=== PATIENT | male | born 1940 | race Caucasian/White ===

== ENCOUNTER → 2020-10-07 15:52 | Outpatient (CLI) | payer OTHER, SELFPAY ==
--- NOTE | 2020-10-07 | DI.ECHO.S_ITS ---
[facility]---------+ [facility] +---------+ : : [address] : : : [place] : : : : [id number] : : : : Phone: [phone]+ Echocardiogram Report + + :Name: JET CLARK Study Date: 10/07/2020 Height: 68 in : :[facility] ReadingLocation: Weight: 185 lb : : Gender: Male BSA: 2.0 m2 : :: 1940 Age: 80 yrs BP: 160/100 mmHg: :Reason For Study: DIZZINESS AND GIDDINESS : :Ordering Physician: LEXY MINAYA : :M Performed By: Sara Donato : :Referring: LEXY MINAYA M : + + Interpretation Summary Normal left ventricle size with hyperdynamic function and ejection fraction 65-70%. Mild aortic valve sclerosis. Mildly enlarged ascending aorta. Procedure: A two-dimensional transthoracic echocardiogram with color flow and Doppler was performed. The study quality was technically adequate. There is no prior echocardiogram noted for this patient. The patient was in sinus rhythm with heart rates between 74-89 bpm during the exam. Left Ventricle: The left ventricle is normal in size and wall thickness. The left ventricle is hyperdynamic. The ejection fraction is estimated to be 65- 70%. There are no focal wall motion abnormalities. Right Ventricle: The right ventricle is normal in size and function. Atria: The left atrial size is normal. Right atrial size is normal. There is no Doppler evidence for an interatrial shunt. Mitral Valve: The mitral valve is normal in structure and function. There is trace mitral regurgitation. Aortic Valve: The aortic valve is trileaflet. The aortic valve opens well. There is mild aortic valve sclerosis. There is no aortic valve stenosis. There is trace aortic regurgitation. Tricuspid Valve: The tricuspid valve is normal in structure and function. There is trace tricuspid regurgitation. Pulmonary artery pressures cannot be estimated because of the lack of a measurable TR jet velocity but the IVC suggests a CVP of around 3 mmHg. Pulmonic Valve: The pulmonic valve leaflets are thin and pliable; valve motion is normal. There is no pulmonic valvular regurgitation. Great Vessels: The aortic root is normal size. The ascending aorta is mildly enlarged. The IVC is of normal diameter and collapses greater than 50% with a sniff. This suggests a low right atrial pressure of 3 mm Hg. Pericardium/ Pleura There is no pericardial effusion. There is an anterior echo-free space consistent with a fat pad. There is no pleural effusion. MMode/2D Measurements & Calculations LVIDd: 3.5 cm LVOT diam: 2.2 cm LVIDs: 2.4 cm Ao root diam: 3.3 cm FS: 29.4 % asc Aorta Diam: 3.5 cm IVSd: 0.96 cm Ao Arch Diam (Prox Trans): 3.2 cm LVPWd: 0.96 cm LV benson. diameter/BSA (cm/m^2): 1.7 LV sys. diameter/BSA (cm/m^2): 1.2 LA A2 area: 22.1 cm2 RA long axis: 5.6 cm LA A4 area: 13.7 cm2 RA area: 16.6 cm2 LA length (vol): 4.7 cm RA vol: 42.0 ml LA vol: 54.4 ml RA : 21.3 ml/m2 LA vol index: 27.5 ml/m2 IVC diam: 1.1 cm RVD1 (basal): 2.8 cm TAPSE: 2.0 cm Doppler Measurements & Calculations Ao V2 max: 156.6 cm/sec LVOT Max Coleman: 122.4 cm/sec Ao V2 mean: 107.5 cm/sec LV V1 max P.0 mmHg Ao max P.8 mmHg LV V1 VTI: 24.3 cm Ao mean P.3 mmHg MARK(I,D): 3.0 cm2 Ao V2 VTI: 30.7 cm MARK(V,D): 3.0 cm2 sev ratio: 0.79 MARK indexed to BSA (cm^2/m^2): 1.5 MV E max coleman: 45.4 cm/sec PA V2 max: 91.0 cm/sec MV A max coleman: 85.1 cm/sec PA V2 mean: 58.5 cm/sec MV E/A: 0.53 PA mean P.6 mmHg Med Peak E' Coleman: 7.1 cm/sec PA pr(Accel): 29.3 mmHg E/E' med: 6.4 Lat Peak E' Coleman: 11.4 cm/sec E/E' lat: 4.0 E/e' average: 5.2 MV dec time: 0.18 sec SV(LVOT): 91.7 ml Electronically signed by: Mary Kate Hutchison on Reading Physician:10/07/2020 05:23 PM
== END ==
PROVIDERS: Family Provider Family Medicine; PCP Family Medicine; Referring Provider Nurse Practitioner Family; Visit Provider Nurse Practitioner Family
DX: I35.8 Other nonrheumatic aortic valve disorders (principal); I77.89 Other specified disorders of arteries and arterioles; R42 Dizziness and giddiness; I44.0 Atrioventricular block, first degree
CPT/HCPCS: 93306

== ENCOUNTER 2020-12-20 16:06 | Emergency (ER) | payer OTHER, SELFPAY ==
[2020-12-20] VITALS (15 sets, daily range): BP systolic 127–201; BP diastolic 72–81; PULSE 51–70; RESP 9–19; TEMP 36.6; O2SAT 97–99; BMI 29.7
[2020-12-20 16:54] LABS: Add Manual Diff / Slide Review NO; Basophils Absolute Auto 100 /uL (0-100); Eosinophils Absolute Auto 300 /uL (0-450); Eosinophils Percent Auto 4.6 % (2-4); Hematocrit 40.3 % (41-53); Hemoglobin 13.7 g/dL (13.5-17.5); Lymphocytes Absolute Auto 2400 /uL (1100-4500); Lymphocytes Percent Auto 34.1 % (25-40); Mean Corpuscular Volume 97.2 fL (80-100); Monocytes Absolute Auto 500 /uL (0-900); Monocytes Percent Auto 6.6 % (3-14); Neutrophils Absolute Auto 3800 /uL (1500-7000); Neutrophils Percent Auto 53.7 % (50-75); Platelet Count 257 X10^3/uL (150-400); Red Blood Cell Count 4.15 X10^6/uL (4.5-5.9); White Blood Cell Count 7.1 X10^3/uL (4.5-11.0)
--- NOTE | 2020-12-20 17:02 | ED.DIZZY ---
HPI - Dizziness General Chief Complaint: Dizziness Stated Complaint: JUST ABOUT PASSING OUT HEADACHE Time Seen by Provider: 12/20/20 16:25 Source: patient Mode of arrival: Ambulatory Limitations: no limitations History of Present Illness HPI Narrative: Patient is a 80-year-old male who presents with dizziness and lightheadedness. He says that he has had it off and on for a number of weeks is. He actually has been seen by a neurologist who ordered an MRI at some point. He states that an old stroke was seen. He gets dizzy and lightheaded both with exertion and at rest but seems to be more exacerbated with very minimal exertion and exercise. He has no chest pain or palpitations. His primary care provider diet started him on Topamax to help with some mild tremors. He feels like this has made his symptoms worse. He comes with a chart and wrap of his blood pressures which do seem to be quite variable however the lowest does seem to have a systolic greater than 100. He also was started on alfuzosin for workup of prostate cancer. He has not passed out hit his head or lost consciousness. He denies nausea vomiting, chest pain or palpitations. No numbness tingling or weakness. MD complaint: dizziness and lightheadedness Related Data Home Medications Medication Instructions Recorded Confirmed CHOLECALCIFEROL (VITAMIN D3) 1 tab PO #0 02/09/12 11/12/20 (#VITAMIN D 90 MG-2000 IU) Fish Oil (#SUPER EPA 2000) 2,000 mg PO QDAY #0 02/09/12 11/12/20 aspirin 81 mg PO QDAY #0 02/09/12 11/12/20 levothyroxine 150 mcg PO QDAY #0 02/09/12 11/12/20 lisinopril 10 mg tablet 10 mg PO DAILY 11/11/20 11/11/20 red yeast rice 600 mg tablet 1,200 mg PO DAILY 11/11/20 11/11/20 Previous Rx's Medication Instructions Recorded alfuzosin 10 mg tablet,extended 10 mg PO DAILY #90 tab 11/12/20 release 24 hr Allergies Allergy/AdvReac Type Severity Reaction Status Date / Time ezetimibe [From Zetia] Allergy Verified 12/20/20 16:11 Plzhxnk-Ndo-Rtu Reductase Allergy Verified 12/20/20 16:11 Inhibitor Review of Systems Review of Systems ROS Unobtainable: All systems reviewed & are unremarkable except as noted in HPI and below Constitutional Constitutional: Denies chills, Denies fever(s), Denies lethargy and Denies weakness ENT Ears, Nose, Mouth, and Throat: Denies change in voice, Denies vertigo, Denies dizziness, Denies neck pain and Denies sore throat Cardiovascular Cardiovascular: Denies chest pain, Denies irregular heart rhythm, Reports lightheadedness, Denies palpitations, Denies dyspnea, Denies dyspnea on exertion and Denies orthopnea Respiratory Respiratory: Denies cough, Denies dyspnea, Denies dyspnea on exertion and Denies wheezing Gastrointestinal Gastrointestinal: Denies abdominal pain, Denies change in bowel habits, Denies diarrhea, Denies nausea and Denies vomiting Musculoskeletal Musculoskeletal: Denies back pain and Denies neck pain Integumentary/Breasts Skin/Breast: Denies pruritus, Denies erythema, Denies rash and Denies wounds Neurologic Neurologic: Denies abnormal movements, Denies vertigo, Denies dizziness and Denies weakness Endocrine Endocrine: Denies palpitations Allergic/Immunologic Allergic/Immunologic: Denies wheezing Patient History Medical History BPH w urinary obs/LUTS CVA (cerebral vascular accident) Depressed Elevated PSA HTN (hypertension) Hypercholesteremia Thyroid disease Surgical History H/O colectomy H/O vasectomy History of colon surgery Family History Son Hypercholesteremia Hypertension Migraine Social History marital status: Smoking Status: Former smoker alcohol intake: current caffeine: Yes Smoking Status: Former smoker Substance Use Type: does not use Exam Initial Vital Signs Initial Vital Signs: Vital Signs Temperature 97.9 F 12/20/20 16:11 Pulse Rate 70 12/20/20 16:11 Respiratory Rate 18 12/20/20 16:11 Blood Pressure 127/81 12/20/20 16:11 Pulse Oximetry 99 12/20/20 16:11 GENERAL: Alert pleasant 80-year-old male and in no acute distress. HEENT: Head atraumatic,EOMI, pupils reactive, face symmetric, moist mucous membranes CARDIOVASCULAR: Regular rate and rhythm without murmurs, rubs or gallops. RESPIRATORY: Breath sounds equal bilaterally, no wheezes rales or rhonchi. ABDOMEN: Soft, nontender. Normoactive bowel sounds all 4 quadrants. No guarding or rebound. EXTREMITIES: Normal range of motion, no clubbing or edema. Neurovascularly intact NEUROLOGICAL: Alert and oriented x4.Normal gait and speech. Cranial nerves II through XII grossly intact. Good qpvkja-mj-eywv, good ckco-sf-yafj, strength equal bilaterally, no dysarthria or aphasia, sensation in tact to soft touch bilaterally, no visual changes, no facial droop SKIN: Warm, dry, no laceration, no petechiae, no rashes or lesions. Scores NIH Stroke Scale Level of Conciousness: Alert, keenly responsive Ask month/age: Answers both questions correctly. Open/close eyes, close hand: Performs both tasks correctly Best gaze horizontal: Normal Visual leo: No visual loss Facial palsy: Normal symetrical movement Left arm drift: No drift for full 10 sec Right arm drift: No drift for full 10 sec Left leg drift: No drift for full 5 sec Right leg drift: No drift for full 5 sec Limb ataxia: Absent Sensory on face/arms/legs: Normal, no sensory loss Best language: No aphasia, normal Dysarthria: Normal Extinction or inattention: No abnormality Total NIH Stroke scale score: 0 Course Orders Ordered: ED Orders 12/20/20 16:30 EKG-12 Lead Stat 12/20/20 16:40 CKMB Panel (CK + CKMB) Stat Complete Blood Count AUTO DIFF Stat Comprehensive Metabolic Panel Stat Troponin I Stat 12/20/20 17:03 CT head/brain wo con Stat Vital Signs Vital signs: Vital Signs - 8 hr 12/20/20 16:11 12/20/20 16:40 12/20/20 16:47 Temperature 97.9 F Pulse Rate 70 64 63 Pulse Rate [Orthostatic Lying] Pulse Rate [Orthostatic Sitting] Pulse Rate [Orthostatic Standing] Respiratory Rate 18 13 Blood Pressure 127/81 127/72 Blood Pressure [Orthostatic Lying] Blood Pressure [Orthostatic Sitting] Blood Pressure [Orthostatic Standing] Pulse Oximetry 99 99 99 12/20/20 17:00 12/20/20 17:30 12/20/20 17:45 Temperature Pulse Rate 68 56 L 57 L Pulse Rate [Orthostatic Lying] Pulse Rate [Orthostatic Sitting] Pulse Rate [Orthostatic Standing] Respiratory Rate 13 11 L 15 Blood Pressure 168/81 H 128/79 173/77 H Blood Pressure [Orthostatic Lying] Blood Pressure [Orthostatic Sitting] Blood Pressure [Orthostatic Standing] Pulse Oximetry 97 99 97 12/20/20 17:55 Temperature Pulse Rate Pulse Rate [Orthostatic Lying] 51 L Pulse Rate [Orthostatic Sitting] 63 Pulse Rate [Orthostatic Standing] 61 Respiratory Rate Blood Pressure Blood Pressure [Orthostatic Lying] 165/77 H Blood Pressure [Orthostatic Sitting] 160/75 H Blood Pressure [Orthostatic Standing] 143/74 H Pulse Oximetry MDM - Dizziness Lab Data Attestation: I reviewed the patient's lab results. Result diagrams: 12/20/20 16:40 12/20/20 16:40 Labs: Lab Results 12/20/20 12/20/20 12/20/20 Range/Units 16:40 16:40 16:40 WBC 7.1 (4.5-11.0) X10^3/uL RBC 4.15 L (4.5-5.9) X10^6/uL Hgb 13.7 (13.5-17.5) g/dL Hct 40.3 L (41-53) % MCV 97.2 (80-100) fL MCH 33.0 (26-34) PG MCHC 34.0 (30-36) % RDW 13.0 (11.6-14.8) % Plt Count 257 (150-400) X10^3/uL Neut % (Auto) 53.7 (50-75) % Lymph % (Auto) 34.1 (25-40) % [place] % (Auto) 6.6 (3-14) % Eos % (Auto) 4.6 H (2-4) % Baso % (Auto) 1.0 (0-2) % Neut # (Auto) 3800 (7665-0980) /uL Lymph # (Auto) 2400 (4250-6005) /uL [place] # (Auto) 500 (0-900) /uL Eos # (Auto) 300 (0-450) /uL Baso # (Auto) 100 (0-100) /uL Sodium 136 L (137-145) mmol/L Potassium 4.4 (3.4-5.1) mmol/L Chloride 105 (98-107) mmol/L Carbon Dioxide 27 (22-32) mmol/L BUN 19 (9-20) mg/dL Creatinine 1.07 (0.66-1.25) mg/dL Estimated GFR > 60.0 (>60) mL/min BUN/Creatinine Ratio 17.8 (6-22) Glucose 94 (80-110) mg/dL Calcium 9.2 (8.4-10.2) mg/dL Total Bilirubin 0.4 (0.2-1.3) mg/dL AST 26 (17-59) IU/L ALT 14 (<50) IU/L Alkaline Phosphatase 49 (38-126) U/L Total Creatine Kinase 84 (55-170) U/L CK-MB (CK-2) TNP CK-MB (CK-2) Rel Index TNP Troponin I < 0.012 (0.01-0.034) ng/mL Total Protein 6.8 (6.3-8.2) g/dL Albumin 3.8 (3.5-5.0) g/dL Globulin 3.0 (1.7-4.1) g/dL Albumin/Globulin Ratio 1.3 (1.0-2.8) Imaging Data CT scan - head: Radiologist's Impression: PROCEDURE: CT HEAD/BRAIN WO CON INDICATIONS: difficulty walking weeks TECHNIQUE: Noncontrast 4.5 mm thick angled axial sections acquired from the foramen magnum to the vertex, with coronal and sagittal reformats. For radiation dose reduction, the following was used: automated exposure control, adjustment of mA and/or kV according to patient size. COMPARISON: None. FINDINGS: Image quality: Excellent. CSF spaces: Basal cisterns are patent. No extra-axial fluid collections. The ventricles are symmetric in size and shape. Brain: No intracranial bleeds or masses. There is cerebral volume loss for age, with resultant ventricular and sulcal prominence. There are periventricular and deep white matter chronic small vessel ischemic changes. There is intracranial internal carotid artery atherosclerosis. Skull and face: Calvarium and visualized facial bones appear intact, without suspicious lesions. Sinuses: Visualized sinuses and mastoids are clear. IMPRESSION: No acute process. Dictated by: Osmani Stevens M.D. on 12/20/2020 at 17:45 ECG Data Attestation: I personally reviewed and interpreted this ECG as follows: Prior ECG tracings: not available for review Interpretation: Normal sinus rhythm rate 58 p.r. interval 252 QRS [address] changes MDM Narrative Medical decision making narrative: Patient has no focal deficits. I believe his symptoms are probably related to the medications. He has been seen by a neurologist for this problem are ready get an outpatient MRI already, I do not have access to that report or record. Symptoms may have gotten worse this week with addition to Topamax. At this time I recommend he stop that particular medication. He has no focal deficits. Blood work in workup is overall reassuring. His blood pressure actually has not dropped significantly low according to his log. He is ambulatory in the ED without any difficulty orthostatics are negative. At this time recommend outpatient follow-up. Discharge Plan Departure Patient Disposition: Home Clinical Impression: Medication reaction Instructions: Orthostatic Hypotension Activity Restrictions/Additional Instructions: *You have been diagnosed with medication reaction *What to do: At this time I believe that some of your symptoms may be related to some of your medications. The prostate medicine and the recent medication you were started on can alter your blood pressure. I do recommend that you have a full cardiology evaluation including a Holter monitor-please discuss this with her primary care provider *Continue to take medications as directed -stop taking topirmate (the medication you started this week) *Follow up with your primary care provider in 2-3 days *Return to ER if you should have passing out, dizziness, lightheadedness, chest pain palpitations or any new, worsening or concerning symptoms If you should have a syncopal episode worry pass out and ended up on the floor without remembering how he got there please call 911 and return to the emergency department Prescriptions: No Action aspirin 81 MG tablet,chewable 81 mg PO QDAY Qty: 0 RF: 0 Fish Oil (#SUPER EPA 2000) 2,000 mg PO QDAY Qty: 0 RF: 0 levothyroxine 150 MCG tablet 150 mcg PO QDAY Qty: 0 RF: 0 CHOLECALCIFEROL (VITAMIN D3) (#VITAMIN D 90 MG-2000 IU) 1 tab PO Qty: 0 RF: 0 red yeast rice 600 mg tablet 1,200 mg PO DAILY RF: 0 lisinopril 10 mg tablet 10 mg PO DAILY RF: 0 alfuzosin 10 mg tablet extended release 24 hr 10 mg PO DAILY Qty: 90 RF: 3 Referrals: Dayanna Bernabe MD [Primary Care Provider] - Young Gonzalez MD [Physician] -
[2020-12-20 17:05] LABS: Alanine Aminotransferase 14 IU/L (<50); Albumin 3.8 g/dL (3.5-5.0); Albumin Globulin Ratio 1.3 (1.0-2.8); Alkaline Phosphatase 49 U/L (38-126); Aspartate Aminotransferase 26 IU/L (17-59); BUN Creatinine Ratio 17.8 (6-22); Bilirubin Total 0.4 mg/dL (0.2-1.3); Blood Urea Nitrogen 19 mg/dL (9-20); Calcium 9.2 mg/dL (8.4-10.2); Carbon Dioxide 27 mmol/L (22-32); Chloride 105 mmol/L (98-107); Creatine Kinase 84 U/L (55-170); Estimated Glomerular Filt Rate > 60.0 mL/min (>60); Glucose 94 mg/dL (80-110); HEMOLYSIS 39 (0-50); Potassium 4.4 mmol/L (3.4-5.1); Sodium 136 mmol/L (137-145); Total Protein 6.8 g/dL (6.3-8.2)
[2020-12-20 17:17] LABS: Troponin I < 0.012 ng/mL (0.01-0.034)
== END 2020-12-20 19:11 | disposition home or self-care (01) ==
PROVIDERS: Emergency Provider Emergency Medicine; Family Provider Family Medicine; PCP Family Medicine
DX: R42 Dizziness and giddiness (principal); T50.905A Adverse effect of unspecified drugs, medicaments and biological substances, initial encounter; R26.2 Difficulty in walking, not elsewhere classified
CPT/HCPCS: 70450; 80053; 82550; 84484; 85025; 93005; 99284

== ENCOUNTER → 2021-01-02 12:52 | Outpatient (CLI) | payer OTHER, SELFPAY ==
--- NOTE | 2021-01-31 08:56 | PM.CARDMON.1 ---
Work Adjustment Instructor Report Referral & Results Date Patient Seen: 01/02/21 Requesting provider: Young Gonzalez Indication: Dizziness Duration of monitoring (days): 7 Diary information: There were no patient events noted Data: Minimum heart rate identified was 42 beats per minute at 22:37 on 01/04/2021 Maximum sinus heart rate was 126 beats per minute at 16:07 on 01/05/2021 Maximum overall heart rate was 182 beats per minute at 12:36 on 01/04/2021 during a 4 beat run of nonsustained ventricular tachycardia There were no pauses or atrial fibrillation identified Less than 1% of identified beats were ventricular or supraventricular ectopic in origin, which would classify them as rare. There was only the 1 run of monomorphic nonsustained ventricular tachycardia as above. 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 Single episode of ventricular tachycardia as above and very rare very brief episodes of SVT
== END ==
PROVIDERS: Family Provider Family Medicine; PCP Family Medicine; Referring Provider Family Medicine; Visit Provider Family Medicine
DX: R42 Dizziness and giddiness (principal)
CPT/HCPCS: 93242; 93244

== ENCOUNTER → 2021-01-16 08:05 | Outpatient (CLI) | payer OTHER, SELFPAY ==
[2021-01-16 10:05] LABS: Prostate Specific Antigen 3.42 ng/mL (0.10-4.00)
== END ==
PROVIDERS: Family Provider Family Medicine; PCP Family Medicine; Referring Provider Specialist; Visit Provider Specialist
DX: R97.20 Elevated prostate specific antigen [PSA] (principal)
CPT/HCPCS: 36415; 84153

== ENCOUNTER → 2021-07-24 10:40 | Outpatient (CLI) | payer OTHER, SELFPAY ==
[2021-07-24 12:49] LABS: TSH w/ Reflex to FT4 7.21 uIU/mL (0.47-4.68)
== END ==
PROVIDERS: Family Provider Family Medicine; PCP Family Medicine; Referring Provider Family Medicine; Visit Provider Family Medicine
DX: E03.9 Hypothyroidism, unspecified (principal)
CPT/HCPCS: 36415; 84439; 84443

== ENCOUNTER → 2023-02-22 10:45 | Outpatient (CLI) | payer OTHER, SELFPAY ==
[2023-02-22 11:41] LABS: Add Manual Diff / Slide Review NO; Basophils Absolute Auto 100 /uL (0-100); Eosinophils Absolute Auto 200 /uL (0-450); Hematocrit 41.2 % (41-53); Lymphocytes Absolute Auto 1400 /uL (1100-4500); Lymphocytes Percent Auto 24.8 % (25-40); Mean Corpuscular HGB Conc 33.9 % (30-36); Mean Corpuscular Volume 97.2 fL (80-100); Monocytes Absolute Auto 400 /uL (0-900); Monocytes Percent Auto 7.9 % (3-14); Neutrophils Absolute Auto 3500 /uL (1500-7000); Neutrophils Percent Auto 63.3 % (50-75); Platelet Count 230 X10^3/uL (150-400); Red Blood Cell Count 4.24 X10^6/uL (4.5-5.9); Red Cell Distribution Width 13.5 % (11.6-14.8); White Blood Cell Count 5.5 X10^3/uL (4.5-11.0)
[2023-02-22 11:54] LABS: Alanine Aminotransferase 15 IU/L (<50); Albumin 3.5 g/dL (3.5-5.0); Albumin Globulin Ratio 1.2 (1.0-2.8); Alkaline Phosphatase 45 U/L (38-126); Aspartate Aminotransferase 23 IU/L (17-59); BUN Creatinine Ratio 16.8 (6-22); Bilirubin Total 0.6 mg/dL (0.2-1.3); Blood Urea Nitrogen 18 mg/dL (9-20); Calcium 8.6 mg/dL (8.4-10.2); Carbon Dioxide 31 mmol/L (22-32); Chloride 105 mmol/L (98-107); Cholesterol 269 mg/dL (140-199); Estimated Glomerular Filt Rate > 60 mL/min (>60); Glucose 90 mg/dL (80-110); HDL Cholesterol 59 mg/dL (40-60); HEMOLYSIS < 15 (0-50); LDL Cholesterol Calculated 195 mg/dL (<100); Magnesium 1.8 mg/dL (1.6-2.3); Potassium 4.5 mmol/L (3.4-5.1); Sodium 136 mmol/L (137-145); Total Protein 6.5 g/dL (6.3-8.2); Triglycerides 77 mg/dL (35-150)
[2023-02-22 12:03] LABS: NT-proBNP (BNP-Adult 18+) 334 pg/mL (<450)
[2023-02-22 12:40] LABS: Thyroid Stimulating Hormone 2.34 uIU/mL (0.47-4.68)
[2023-02-26 08:06] LABS: Metanephrine,Plasma 19.1 pg/mL (0.0-88.0)
== END ==
PROVIDERS: Family Provider Family Medicine; PCP Family Medicine; Referring Provider Internal Medicine Cardiovascular Disease; Visit Provider Internal Medicine Cardiovascular Disease
DX: I10 Essential (primary) hypertension (principal); R06.02 Shortness of breath
CPT/HCPCS: 36415; 80053; 80061; 82088; 83735; 83835; 83880; 84443; 85025

== ENCOUNTER → 2023-03-25 | Outpatient (CLI) | payer OTHER, SELFPAY ==
--- NOTE | 2023-03-25 | DI.ECHO.S_ITS ---
[place] +---------+ [facility] +---------+ : : [address] : [place] : : : : [id number] : : : : Phone: [phone]---------+ Echocardiogram Report + + :Name: JET CLARK Study Date: 03/25/2023 Height: 67 in : :[facility] ReadingLocation: Weight: 200 lb : : Gender: Male BSA: 2.0 m2 : :: 1940 Age: 82 yrs BP: 149/100 mmHg: :Reason For Study: Peripheral Vascular Disease : :Ordering Physician: GRIFFIN, : :MENDEL Performed By: Aggie Mack : :Referring: MENDEL MOYA : + + Interpretation Summary Bloos pressure retaken at the end of exam. (137/95) The left ventricle is normal in size. The ejection fraction is estimated to be 60-65%. No significant change in LV function. The right ventricle is mildly dilated. The right ventricular systolic function is normal. No significant valvular pathology seen. The IVC is of normal diameter and collapses greater than 50% with a sniff. This suggests a low right atrial pressure of 3 mm Hg. Procedure: A two-dimensional transthoracic echocardiogram with color flow and Doppler was performed. The study quality was technically adequate. Comparison is made with the echocardiogram of 10/07/2020. The patient was in normal sinus rhythm during the exam. The patient was in first degree heart block during the exam. Left Ventricle: The left ventricle is normal in size. There is no thrombus. The ejection fraction is estimated to be 60-65%. Septal motion is consistent with conduction abnormality. Diastolic parameters suggest a relaxation abnormality of the left ventricle, consistent with probable normal filling pressures. Right Ventricle: The right ventricle is mildly dilated. The right ventricular systolic function is normal. Atria: The left atrial size is normal. There has been no significant change since the previous study. Right atrial size is normal. There is no Doppler evidence for an interatrial shunt. Mitral Valve: The mitral valve is normal. There is no mitral valve stenosis. There is trace mitral regurgitation. Aortic Valve: The aortic valve is trileaflet. The aortic valve opens well. There is mild aortic valve sclerosis. There is no aortic valve stenosis. There is mild aortic regurgitation. Tricuspid Valve: The tricuspid valve is normal. There is no tricuspid stenosis. There is trace tricuspid regurgitation. The right ventricular systolic pressure is estimated to be at least 22 mmHg based on an estimated right atrial pressure of 3 mm Hg. Pulmonic Valve: The pulmonic valve leaflets are thin and pliable; valve motion is normal. There is no pulmonic valvular stenosis. There is trace pulmonic regurgitation. Great Vessels: The aortic root is normal size. The ascending aorta is normal in size. The pulmonary artery is normal size. The IVC is of normal diameter and collapses greater than 50% with a sniff. This suggests a low right atrial pressure of 3 mm Hg. Pericardium/ Pleura There is no pericardial effusion. There is an anterior echo-free space consistent with a fat pad. There is no pleural effusion. MMode/2D Measurements & Calculations LVIDd: 3.7 cm LVOT diam: 1.9 cm LVIDs: 2.8 cm Ao root diam: 3.2 cm FS: 24.3 % asc Aorta Diam: 3.0 cm IVSd: 0.90 cm LVPWd: 1.0 cm LV benson. diameter/BSA (cm/m^2): 1.8 LV sys. diameter/BSA (cm/m^2): 1.4 LA A2 area: 23.4 cm2 RA long axis: 5.9 cm LA A4 area: 15.8 cm2 RA area: 18.7 cm2 LA length (vol): 6.0 cm RA vol: 50.4 ml LA vol: 52.3 ml RA : 24.9 ml/m2 LA vol index: 25.9 ml/m2 RVD1 (basal): 4.2 cm LVLs ap4: 6.5 cm LVLd ap2: 8.2 cm TAPSE_phl: 2.5 cm LVLs ap2: 6.4 cm Doppler Measurements & Calculations Ao V2 max: 158.0 cm/sec LVOT Max Coleman: 123.0 cm/sec Ao V2 mean: 106.7 cm/sec LV V1 max P.1 mmHg Ao max P.0 mmHg LV V1 VTI: 25.4 cm Ao mean P.3 mmHg MARK(I,D): 2.0 cm2 Ao V2 VTI: 35.6 cm MARK(V,D): 2.2 cm2 sev ratio: 0.71 MARK indexed to BSA (cm^2/m^2): 1.0 MV E max coleman: 58.5 cm/sec TR max coleman: 215.3 cm/sec MV A max coleman: 78.5 cm/sec TR max P.6 mmHg MV E/A: 0.74 PA V2 max: 82.5 cm/sec Med Peak E' Coleman: 8.1 cm/sec PA V2 mean: 56.0 cm/sec E/E' med: 7.2 PA mean P.7 mmHg Lat Peak E' Coleman: 9.6 cm/sec PA pr(Accel): 47.9 mmHg E/E' lat: 6.1 E/e' average: 6.7 MV dec time: 0.24 sec SV(LVOT): 71.9 ml AV VR_phl: 0.78 MARK(VTI)/BSA_phl: 1.0 Reading Physician:04:40 PM
--- NOTE | 2023-03-25 08:36 | DI.US.S_ITS ---
PROCEDURE: US ARTERIAL DUPLEX LE BI INDICATIONS: PERIPHERAL ARTERIAL DISEASE TECHNIQUE: Color and pulse Doppler interrogation was performed of both lower extremity arterial systems, with image documentation. COMPARISON: None. FINDINGS: Right lower extremity: Common femoral artery: 96 cm/sec, with triphasic flow. Deep femoral artery: 65 cm/sec, with triphasic flow. Proximal superficial femoral artery: 65 cm/sec, with triphasic flow. Mid superficial femoral artery: 86 cm/sec, with triphasic flow. Distal superficial femoral artery: 63 cm/sec, with triphasic flow. Popliteal artery: 56 cm/sec, with triphasic flow. Posterior tibial artery: 64 cm/sec, with triphasic flow. Anterior tibial artery/dorsalis pedis: 81 cm/sec, with triphasic flow. Jj-scale imaging description: Minimal plaque. No stenosis. At least 2 vessel runoff. Left lower extremity: Common femoral artery: 93 cm/sec, with triphasic flow. Deep femoral artery: 58 cm/sec, with triphasic flow. Proximal superficial femoral artery: 84 cm/sec, with triphasic flow. Mid superficial femoral artery: 108 cm/sec, with triphasic flow. Distal superficial femoral artery: 56 cm/sec, with triphasic flow. Popliteal artery: 64 cm/sec, with triphasic flow. Posterior tibial artery: 72 cm/sec, with triphasic flow. Anterior tibial artery/dorsalis pedis: 61 cm/sec, with triphasic flow. Jj-scale imaging description: Minimal plaque. No stenosis. At least 2 vessel runoff. IMPRESSION: Negative peripheral arterial ultrasound for patient age. Dictated by: Simone Velez M.D. on 03/25/2023 at 12:02 Approved by: Simone Velez M.D. on 03/25/2023 at 12:04
--- NOTE | 2023-03-26 00:46 | DI.NM.S_ITS ---
DATE OF SERVICE: 03/25/2023 PROCEDURE: Exercise treadmill stress and rest myocardial perfusion imaging study with gating to assess ejection fraction and regional wall motion. ORDERING PROVIDER: Mónica Corcoran MD INDICATIONS: The patient is an 82-year-old male with a history of alcohol use, lightheadedness, and dyspnea. CARDIAC STRESS: The patient was able to exercise for 3 minutes 1 second on a standard Barrett protocol suggesting moderate-severely reduced exercise capacity with an KELLY of +31%, achieving 4.0 METs. He had a normal hemodynamic response to exercise, achieving a maximum heart rate of 126 BPM (91% of his predicted maximum). He had no chest discomfort or other anginal symptoms. His resting ECG is normal with normal ST segments. There are no significant ST-segment shifts or arrhythmias with stress. At 1 minute 40 seconds of exercise at a heart rate of 110 BPM, 24.5 mCi of technetium-99m Myoview was injected and he was imaged 15 minutes later using a gated SPECT acquisition protocol. Earlier in the day while at rest, he had been injected with 10.9 mCi of technetium-99m Myoview and was imaged 20 minutes later, again using a quantitated gated SPECT protocol. FINDINGS: 1. Raw data: There is fair myocardial tracer uptake with slight motion noted. The lung/heart ratio is normal at 0.33 with a normal TID ratio of 0.72. 2. Quantitated gated SPECT: Post-stress ejection fraction is estimated at 80% without any focal wall motion abnormality and specifically the inferior wall appears to have fairly normal contractility. The resting ejection fraction is 68%, although visually it appears similar to that of the post-stress image. Resting end-diastolic volume is normal at 97 mL. 3. Myocardial perfusion imaging: Post-stress supine images shows a mild perfusion defect in the proximal and mid inferior wall, becoming somewhat more prominent distally. This defect resolves proximally on the prone images, although a mild defect persists distally. There are no other perfusion defects. The resting images show an identical perfusion pattern to that of the post-stress supine images, again with an inferior defect that is more prominent distally but without any areas of improvement. IMPRESSION: 1. Probable abnormal myocardial perfusion study. 2. Fixed inferior defect that is more profound distally. This defect resolves proximally, suggesting this reflects diaphragmatic attenuation, although persists to a slight degree distally on the prone images suggesting this could represent a small previous infarct yet the absence of any wall motion abnormality in this area would mitigate against this but still, a small nontransmural distal inferior infarction cannot be entirely excluded. There is no evidence for any myocardial ischemia. 3. Normal left ventricular systolic function without any focal wall motion abnormality. 4. Moderate-severely reduced exercise capacity without angina or ECG changes of ischemia. There were no arrhythmias. Jose G Gutierrez - /christopher/ doc#: [id number]/job#: [id number] dd: 03/25/2023 16:58:00 dt: 03/26/2023 00:09:00 DICTATING MD/COPIES TO: Evan Gonzalez MD; Mónica Corcoran MD COPIES MNE: ALPHONSO;
== END ==
PROVIDERS: Family Provider Family Medicine; PCP Family Medicine; Referring Provider Internal Medicine Cardiovascular Disease; Visit Provider Internal Medicine Cardiovascular Disease
DX: I35.0 Nonrheumatic aortic (valve) stenosis (principal); I35.8 Other nonrheumatic aortic valve disorders; I73.9 Peripheral vascular disease, unspecified; R06.02 Shortness of breath; R42 Dizziness and giddiness
CPT/HCPCS: 78452; 93016; 93017; 93018; 93306; 93925; A9502

== ENCOUNTER 2025-03-09 11:42 | Emergency (ER) | payer OTHER, SELFPAY ==
[2025-03-09] VITALS (48 sets, daily range): BP systolic 140–236; BP diastolic 71–115; PULSE 56–99; RESP 10–27; TEMP 36.6; O2SAT 96–99; BMI 27.0
--- NOTE | 2025-03-09 12:02 | EKG_ITS ---
[place] [address] [address] [place] [id number] Test Date: 2025-03-09 Pat Name: Jose G Gutierrez Department: [facility] Room: Gender: Male Creche Attendant: JONATHAN : 1940 Requested By: Order Number: [id number] Reading MD: Marv Potter Measurements Intervals [place] Rate: 65 P: -29 SC: 208 QRS: -16 QRSD: 78 T: -12 QT: 416 QTc: 432 Interpretive Statements Poor data quality, interpretation may be adversely affected Normal sinus rhythm Inferior infarct , age undetermined Electronically Signed On 03-23-2025 8:10:59 PDT by Marv Potter
--- NOTE | 2025-03-09 12:02 | DI.RAD.S_ITS ---
PROCEDURE: XR CHEST 1V INDICATIONS: Chest Pain TECHNIQUE: One view of the chest was acquired. COMPARISON: [facility], , CHEST 2 VIEW, 08/07/2014, 15:23. FINDINGS: Surgical changes and devices: None. Lungs and pleura: On this semiupright portable chest examination, no large pneumothorax or large pleural effusions are seen. No focal infiltrates are seen. Mediastinum: The cardiac contours are within normal limits. The aorta demonstrates calcification and tortuosity. Bones and chest wall: No suspicious bony lesions. Age-appropriate bony degenerative changes are seen. Overlying soft tissues appear unremarkable. IMPRESSION: Limited portable chest examination, without a significant cardiopulmonary abnormality identified. Dictated by: Anand Haji M.D. on 03/09/2025 at 11:54 Approved by: Anand Haji M.D. on 03/09/2025 at 11:54
--- NOTE | 2025-03-09 12:07 | ED.WEAKNESS ---
HPI - Weakness <Aubrey Burgos MD - Last Filed: 03/10/25 16:55> General Chief complaint: Weakness Stated complaint: possible stroke again Time Seen by Provider: 03/09/25 12:06 History of Present Illness HPI Narrative: Subjective: Pt presents to the ER with a past medical history significant for benign prostatic hypertrophy, thyroid disease, hypertension, hyperlipidemia, depression, and prior TIAs with possibly a small stroke. The patient, Jose G, an 84-year-old male, reports experiencing dizziness and weakness for the past two days. He describes feeling very dizzy and weak all over his body, with difficulty getting off the couch. oJse G mentions having had similar episodes in the past, with the last one occurring about a year ago. His interjects that he has been experiencing balance and dizziness spells increasingly over the course of a year, becoming more pronounced in recent months. The patient reports chronic headaches but denies any recent head injury, though he mentions falling 2-3 weeks ago. Jose G is currently on baby aspirin but is not taking any blood pressure medication despite a history of hypertension. His blood pressure is noted to be extremely high during the visit, though he typically averages around 150/90. Additional symptoms include coughing with thick phlegm and a stuffy nose for the last few days. The patient denies chest pain, heart racing, abdominal pain, nausea, vomiting, or diarrhea. He reports occasional alcohol consumption, with his last drink being 3-4 days ago, and denies recreational drug use. Related Data Home Medications ?Medication ?Instructions ?Recorded ?Confirmed CHOLECALCIFEROL (VITAMIN D3) 1 tab PO ##0 02/09/12 01/21/21 (#VITAMIN D 90 MG-2000 IU) Fish Oil (#SUPER EPA 2000) 2,000 mg PO QDAY ##0 02/09/12 01/21/21 aspirin 81 mg chewable tablet 81 mg PO QDAY ##0 02/09/12 01/21/21 levothyroxine 150 mcg tablet 150 mcg PO QDAY ##0 02/09/12 01/21/21 red yeast rice 600 mg tablet 1,200 mg PO DAILY 11/11/20 01/21/21 Previous Rx's ?Medication ?Instructions ?Recorded alfuzosin 10 mg tablet,extended 10 mg PO DAILY #90 tabs 11/12/20 release 24 hr amlodipine 5 mg tablet 5 mg PO DAILY #30 tabs 03/09/25 meclizine 25 mg tablet 25 mg PO TID 7 days #21 tabs 03/09/25 Allergies Allergy/AdvReac Type Severity Reaction Status Date / Time ezetimibe (From Zetia) Allergy Verified 03/09/25 12:04 [id number] Reductase Allergy Verified 03/09/25 12:04 Inhibitor (Prfioko-Qfc-Ovb Reductase Inhibitor) Patient History <Aubrey Burgos MD - Last Filed: 03/10/25 16:55> Medical History (Updated 03/09/25 @ 18:13 by Aubrey Burgos MD) History of elevated PSA BPH w urinary obs/LUTS Elevated PSA Thyroid disease HTN (hypertension) Hypercholesteremia Depressed CVA (cerebral vascular accident) Surgical History H/O vasectomy History of colon surgery H/O colectomy Family History Son Hypercholesteremia Hypertension Migraine Social History marital status: Smoking Status: Former smoker alcohol intake: current caffeine: Yes Exam <Aubrey Burgos MD - Last Filed: 03/10/25 16:55> Narrative Exam Narrative: VS as noted above Focused physical exam as follows: General: Well developed, well nourished, no acute distress HEENT: pink palpebral conjunctiva, anicteric sclera, KO, moist mucous membranes, no JVD, no cervical lymphadenopathy Lungs: no respiratory distress, clear to auscultation without wheezes or crackles; equal breath sounds Heart: normal rate, regular rhythm, no appreciable murmurs Abdomen: soft, nontender, no rebound or rigidity Musculoskeletal: no gross deformities with full ROM in all extremities, trace pedal edema Skin: pink, warm; no rashes Neuro: ?AAOx3, GCS 15, nonfocal exam; no nystagmus; strength in all extremities good; no paresthesia Psyche: no SI/HI, normal affect Initial Vital Signs Initial Vital Signs: Vital Signs Pulse Rate 68 03/09/25 11:51 Respiratory Rate 15 03/09/25 11:51 Pulse Oximetry 98 03/09/25 11:51 <Christ Mark MD - Last Filed: 03/10/25 02:50> Initial Vital Signs Initial Vital Signs: Vital Signs Pulse Rate 68 03/09/25 11:51 Respiratory Rate 15 03/09/25 11:51 Pulse Oximetry 98 03/09/25 11:51 Course <Aubrey Burgos MD - Last Filed: 03/10/25 16:55> Orders Ordered: Discontinued Medications Amlodipine Besylate (Amlodipine 5 Mg Tablet) 5 mg PO NOW ONE Stop: 03/09/25 18:22 Last Admin: 03/09/25 18:24 Dose: 5 mg Documented By: JONATHAN Aspirin (Aspirin 81 Mg Chew Tab) 324 mg PO NOW ONE Stop: 03/09/25 12:02 Last Admin: 03/09/25 12:29 Dose: 243 mg Documented By: JONATHAN Hydralazine HCl (Hydralazine 20 Mg/Ml Vial) 10 mg IV NOW ONE Stop: 03/09/25 16:24 Last Admin: 03/09/25 16:29 Dose: 10 mg Documented By: JONATHAN Meclizine HCl (Meclizine Hcl 12.5 Mg Tablet) 25 mg PO NOW ONE Stop: 03/09/25 18:29 Last Admin: 03/09/25 18:35 Dose: 25 mg Documented By: JONATHAN Vital Signs Vital signs: Vital Signs - 8 hr 03/09/25 19:00 03/09/25 19:00 03/09/25 19:10 Pulse Rate 59 L Respiratory Rate 17 Blood Pressure 164/87 H 149/78 H Pulse Oximetry 97 Oxygen Delivery Method 03/09/25 19:10 03/09/25 19:20 03/09/25 19:20 Pulse Rate 65 62 Respiratory Rate 12 14 Blood Pressure 140/74 Pulse Oximetry 97 97 Oxygen Delivery Method Room Air 03/09/25 19:30 03/09/25 19:30 03/09/25 19:40 Pulse Rate 77 Respiratory Rate 25 H Blood Pressure 147/71 H 162/79 H Pulse Oximetry 97 Oxygen Delivery Method Room Air 03/09/25 19:40 03/09/25 19:50 03/09/25 19:50 Pulse Rate 64 63 Respiratory Rate 12 10 L Blood Pressure 145/72 H Pulse Oximetry 97 96 Oxygen Delivery Method Room Air Room Air 03/09/25 20:00 03/09/25 20:00 03/09/25 20:15 Pulse Rate 62 69 Respiratory Rate 11 L 27 H Blood Pressure 152/78 H Pulse Oximetry 96 98 Oxygen Delivery Method Room Air Room Air 03/09/25 20:15 03/09/25 20:20 03/09/25 20:20 Pulse Rate 61 Respiratory Rate 12 Blood Pressure 205/96 H 163/77 H Pulse Oximetry 97 Oxygen Delivery Method Room Air 03/09/25 20:30 03/09/25 20:30 Pulse Rate 67 Respiratory Rate 16 Blood Pressure 152/81 H Pulse Oximetry 97 Oxygen Delivery Method Room Air <Christ Mark MD - Last Filed: 03/10/25 02:50> Orders Ordered: Discontinued Medications Amlodipine Besylate (Amlodipine 5 Mg Tablet) 5 mg PO NOW ONE Stop: 03/09/25 18:22 Last Admin: 03/09/25 18:24 Dose: 5 mg Documented By: JONATHAN Aspirin (Aspirin 81 Mg Chew Tab) 324 mg PO NOW ONE Stop: 03/09/25 12:02 Last Admin: 03/09/25 12:29 Dose: 243 mg Documented By: JONATHAN Hydralazine HCl (Hydralazine 20 Mg/Ml Vial) 10 mg IV NOW ONE Stop: 03/09/25 16:24 Last Admin: 03/09/25 16:29 Dose: 10 mg Documented By: JONATHAN Meclizine HCl (Meclizine Hcl 12.5 Mg Tablet) 25 mg PO NOW ONE Stop: 03/09/25 18:29 Last Admin: 03/09/25 18:35 Dose: 25 mg Documented By: JONATHAN Vital Signs Vital signs: Vital Signs - 8 hr 03/09/25 19:00 03/09/25 19:00 03/09/25 19:10 Pulse Rate 59 L Respiratory Rate 17 Blood Pressure 164/87 H 149/78 H Pulse Oximetry 97 Oxygen Delivery Method 03/09/25 19:10 03/09/25 19:20 03/09/25 19:20 Pulse Rate 65 62 Respiratory Rate 12 14 Blood Pressure 140/74 Pulse Oximetry 97 97 Oxygen Delivery Method Room Air 03/09/25 19:30 03/09/25 19:30 03/09/25 19:40 Pulse Rate 77 Respiratory Rate 25 H Blood Pressure 147/71 H 162/79 H Pulse Oximetry 97 Oxygen Delivery Method Room Air 03/09/25 19:40 03/09/25 19:50 03/09/25 19:50 Pulse Rate 64 63 Respiratory Rate 12 10 L Blood Pressure 145/72 H Pulse Oximetry 97 96 Oxygen Delivery Method Room Air Room Air 03/09/25 20:00 03/09/25 20:00 03/09/25 20:15 Pulse Rate 62 69 Respiratory Rate 11 L 27 H Blood Pressure 152/78 H Pulse Oximetry 96 98 Oxygen Delivery Method Room Air Room Air 03/09/25 20:15 03/09/25 20:20 03/09/25 20:20 Pulse Rate 61 Respiratory Rate 12 Blood Pressure 205/96 H 163/77 H Pulse Oximetry 97 Oxygen Delivery Method Room Air 03/09/25 20:30 03/09/25 20:30 Pulse Rate 67 Respiratory Rate 16 Blood Pressure 152/81 H Pulse Oximetry 97 Oxygen Delivery Method Room Air MDM - Weakness <Aubrey Burgos MD - Last Filed: 03/10/25 16:55> Lab Data 03/09/25 12:06 03/09/25 12:06 Labs: Lab Results 03/09/25 03/09/25 03/09/25 Range/Units 12:06 12:41 13:28 WBC 6.3 (4.5-11.0) X10^3/uL RBC 4.23 L (4.5-5.9) X10^6/uL Hgb 14.4 (13.5-17.5) g/dL Hct 41.9 (41-53) % MCV 99.2 (80-100) fL MCH 34.0 (26-34) PG MCHC 34.3 (30-36) % RDW 13.4 (11.6-14.8) % Plt Count 225 (150-400) X10^3/uL Neut % (Auto) 67.4 (50-75) % Lymph % (Auto) 23.5 L (25-40) % [place] % (Auto) 6.5 (3-14) % Eos % (Auto) 1.7 L (2-4) % Baso % (Auto) 0.9 (0-2) % Neut # (Auto) 4200 (7256-5052) /uL Lymph # (Auto) 1500 (4478-2404) /uL [place] # (Auto) 400 (0-900) /uL Eos # (Auto) 100 (0-450) /uL Baso # (Auto) 100 (0-100) /uL PT 11.0 (9.4-12.5) SECONDS INR 1.0 (0.9-1.3) APTT 29 (25.1-36.5) SECONDS Sodium 133 L (137-145) mmol/L Potassium 4.3 (3.4-5.1) mmol/L Chloride 101 (98-107) mmol/L Carbon Dioxide 24 (22-32) mmol/L BUN 12 (9-20) mg/dL Creatinine 1.04 (0.66-1.25) mg/dL Estimated GFR > 60 (>60) mL/min BUN/Creatinine Ratio 11.5 (6-22) Glucose 111 H (70-99) mg/dL Calcium 9.0 (8.4-10.2) mg/dL Magnesium 1.9 (1.6-2.3) mg/dL Total Bilirubin 1.0 (0.2-1.3) mg/dL AST 58 (17-59) IU/L ALT 26 (<50) IU/L Alkaline Phosphatase 51 (38-126) U/L Total Creatine Kinase 130 (55-170) U/L Troponin I 0.013 (0.01-0.034) ng/mL NT-Pro-B Natriuret Pep 1010 H (<450) pg/mL Total Protein 6.8 (6.3-8.2) g/dL Albumin 4.0 (3.5-5.0) g/dL Globulin 2.8 (1.7-4.1) g/dL Albumin/Globulin Ratio 1.4 (1.0-2.8) Lipase 104 (23-300) U/L Urine Color Yellow Urine Appearance Clear Urine pH 7.5 (4.5-8.0) Ur Specific [place] 1.010 (1.000-1.035) Urine Protein Negative (Negative) Urine Glucose (UA) Negative (Negative) g/dL Urine Ketones Negative (NEGATIVE) Urine Occult Blood Negative (Negative) Urine Nitrate Negative (Negative) Urine Bilirubin Negative (NEGATIVE) Urine Urobilinogen 0.2 (0.2) E.U./dL Ur Leukocyte Esterase Negative (NEGATIVE) Urine RBC 0-1/hpf (0-5/HPF) Urine WBC 0-1/hpf (0-5/HPF) Ur Squamous Epith Cells 0-1 /hpf (0-5/HPF) Urine Bacteria Occasional (0-1) (None) Ur Culture Indicated? Cult not indicated Vol Urine Centrifuged 10ml (spun) U Opiates 300ng/mL cut Negative (Negative) Ur Oxycodone Screen Negative (Negative) Urine Methadone Screen Negative (Negative) Ur Barbiturates Screen Negative (Negative) U Tricyclic Antidepress Negative (Negative) Ur Phencyclidine Scrn Negative (Negative) Ur Amphetamines Screen Negative (Negative) U Methamphetamines Scrn Negative (Negative) Ur MDMA Scrn (Ecstasy) Negative (Negative) U Benzodiazepines Scrn Negative (Negative) Urine Cocaine Screen Negative (Negative) U Marijuana (THC) Screen Negative (Negative) Urine Specific [place] (Normal) Ethyl Alcohol < 10 (<10) mg/dL Ur Creatinine (Normal) Chlamy pneumoniae PCR Not detected (Not Detect) Adenovirus (PCR) Not detected (Not Detect) B. pertussis DNA (PCR) Not detected (Not Detect) B.parapertussis DNA PCR Not detected (Not Detecte) Coronavirus OC43 (PCR) Not detected (Not Detect) Coronavirus HKU1 (PCR) Not detected (Not Detect) Coronavirus 229E (PCR) Not detected (Not Detect) SARS-CoV-2 (PCR) Not detected (Not Detecte) Coronavirus NL63 (PCR) Not detected (Not Detect) Human Metapneumovir PCR Not detected (Not Detect) Influenza Type A (PCR) Not detected (Not Detect) Influenza Type B (PCR) Not detected (Not Detect) M. pneumoniae (PCR) Not detected (Not Detect) Parainfluenza 1 (PCR) Not detected (Not Detect) Parainfluenza 2 (PCR) Not detected (Not Detect) Parainfluenza 3 (PCR) Not detected (Not Detect) Parainfluenza 4 (PCR) Not detected (Not Detect) RSV (PCR) Not detected (Not Detect) Entero/Rhino (PCR) Not detected (Not Detect) 03/09/25 03/09/25 Range/Units 13:28 17:00 WBC (4.5-11.0) X10^3/uL RBC (4.5-5.9) X10^6/uL Hgb (13.5-17.5) g/dL Hct (41-53) % MCV (80-100) fL MCH (26-34) PG MCHC (30-36) % RDW (11.6-14.8) % Plt Count (150-400) X10^3/uL Neut % (Auto) (50-75) % Lymph % (Auto) (25-40) % [place] % (Auto) (3-14) % Eos % (Auto) (2-4) % Baso % (Auto) (0-2) % Neut # (Auto) (0505-5995) /uL Lymph # (Auto) (5872-4882) /uL [place] # (Auto) (0-900) /uL Eos # (Auto) (0-450) /uL Baso # (Auto) (0-100) /uL PT (9.4-12.5) SECONDS INR (0.9-1.3) APTT (25.1-36.5) SECONDS Sodium (137-145) mmol/L Potassium (3.4-5.1) mmol/L Chloride (98-107) mmol/L Carbon Dioxide (22-32) mmol/L BUN (9-20) mg/dL Creatinine (0.66-1.25) mg/dL Estimated GFR (>60) mL/min BUN/Creatinine Ratio (6-22) Glucose (70-99) mg/dL Calcium (8.4-10.2) mg/dL Magnesium (1.6-2.3) mg/dL Total Bilirubin (0.2-1.3) mg/dL AST (17-59) IU/L ALT (<50) IU/L Alkaline Phosphatase (38-126) U/L Total Creatine Kinase (55-170) U/L Troponin I 0.016 (0.01-0.034) ng/mL NT-Pro-B Natriuret Pep (<450) pg/mL Total Protein (6.3-8.2) g/dL Albumin (3.5-5.0) g/dL Globulin (1.7-4.1) g/dL Albumin/Globulin Ratio (1.0-2.8) Lipase (23-300) U/L Urine Color Urine Appearance Urine pH Normal (4.5-8.0) Ur Specific [place] (1.000-1.035) Urine Protein (Negative) Urine Glucose (UA) (Negative) g/dL Urine Ketones (NEGATIVE) Urine Occult Blood (Negative) Urine Nitrate (Negative) Urine Bilirubin (NEGATIVE) Urine Urobilinogen (0.2) E.U./dL Ur Leukocyte Esterase (NEGATIVE) Urine RBC (0-5/HPF) Urine WBC (0-5/HPF) Ur Squamous Epith Cells (0-5/HPF) Urine Bacteria (None) Ur Culture Indicated? Vol Urine Centrifuged U Opiates 300ng/mL cut (Negative) Ur Oxycodone Screen (Negative) Urine Methadone Screen (Negative) Ur Barbiturates Screen (Negative) U Tricyclic Antidepress (Negative) Ur Phencyclidine Scrn (Negative) Ur Amphetamines Screen (Negative) U Methamphetamines Scrn (Negative) Ur MDMA Scrn (Ecstasy) (Negative) U Benzodiazepines Scrn (Negative) Urine Cocaine Screen (Negative) U Marijuana (THC) Screen (Negative) Urine Specific [place] Normal (Normal) Ethyl Alcohol (<10) mg/dL Ur Creatinine Normal (Normal) Chlamy pneumoniae PCR (Not Detect) Adenovirus (PCR) (Not Detect) B. pertussis DNA (PCR) (Not Detect) B.parapertussis DNA PCR (Not Detecte) Coronavirus OC43 (PCR) (Not Detect) Coronavirus HKU1 (PCR) (Not Detect) Coronavirus 229E (PCR) (Not Detect) SARS-CoV-2 (PCR) (Not Detecte) Coronavirus NL63 (PCR) (Not Detect) Human Metapneumovir PCR (Not Detect) Influenza Type A (PCR) (Not Detect) Influenza Type B (PCR) (Not Detect) M. pneumoniae (PCR) (Not Detect) Parainfluenza 1 (PCR) (Not Detect) Parainfluenza 2 (PCR) (Not Detect) Parainfluenza 3 (PCR) (Not Detect) Parainfluenza 4 (PCR) (Not Detect) RSV (PCR) (Not Detect) Entero/Rhino (PCR) (Not Detect) Imaging Data CT scan - head: Radiologist Impression: IMPRESSION: Unremarkable noncontrast head CT, similar to the prior. cta head and neck: Radiologist Impression: IMPRESSION: No imaging explanation is found for this patient's presenting symptoms. No significant intracranial arterial abnormality is seen. No significant abnormality is seen within the arteries of the neck. No findings of dissection are seen. Chest x-ray: Radiologist Impression: No acute process MRI brain: Radiologist Impression: IMPRESSION: No imaging explanation is found for this patient's presenting symptoms. No findings of acute or subacute infarction can be seen. To the limits of this noncontrast study, no findings of intracranial masses or mass effect can be seen. Note is made of age-appropriate brain parenchymal volume loss and chronic small vessel ischemic changes. ECG Data Interpretation: 1240 - NSR @ 65; no STTW changes; QTc 432 MDM Narrative Medical decision making narrative: HPI, PMHx, PSHx, Medication list, Allergies, ROS and Focused exam were reviewed above. ?Differential diagnosis as noted below. ?Social determinants affecting care considered. ?All of these were taken into consideration warranting above listed work up. ?Consultations as deemed necessary were documented below (if listed). Labs (if ordered and noted) were independently reviewed by me. Imaging studies (if ordered and noted) were independently reviewed by me EKG (if noted) was independently reviewed by me External documents (if reviewed) are documented above Initial VS noted above. ? Differential diagnosis considered include (but not limited to) the following: CVA/TIA, intracranial hemorrhage, brain neoplasm, BPPV, Meniere's disease, labyrinthitis, ACS, cardiac dysrhythmia, dehydration, liver or kidney failure, electrolyte imbalance, symptomatic anemia, adverse effect of illicit drug/ETOH, CHF, UTI Pt interviewed and examined. Nonfocal exam with no nystagmus noted. NIHSS zero. Last well known time was 2 days ago. Not a TNKase candidate but stroke work up initiated. Bedside EKG showed no ST elevation or ectopy. CT head, CTA head and neck negative. MRI brain ordered - no occipital infarct. Labs overall reassuring other than elevated BNP but CXR showed no acute pulmonary edema. BP still high. Hydralazine IV ordered for HTN and BP briefly improved then went back up. Discussed plan of care and discussed case with Dr. Khan regarding admission for BP med adjustment and observation considering his risk of fall and home status (lives alone). Doesn't feel admission is warranted at this time. Case signed out to Dr. Mark @ 183 with reassessment after PO Amlodipine and safe disposition home. Aubrey Burgos MD 03/09/[id number] <Christ Mark MD - Last Filed: 03/10/25 02:50> Lab Data Labs: Lab Results 03/09/25 03/09/25 03/09/25 Range/Units 12:06 12:41 13:28 WBC 6.3 (4.5-11.0) X10^3/uL RBC 4.23 L (4.5-5.9) X10^6/uL Hgb 14.4 (13.5-17.5) g/dL Hct 41.9 (41-53) % MCV 99.2 (80-100) fL MCH 34.0 (26-34) PG MCHC 34.3 (30-36) % RDW 13.4 (11.6-14.8) % Plt Count 225 (150-400) X10^3/uL Neut % (Auto) 67.4 (50-75) % Lymph % (Auto) 23.5 L (25-40) % [place] % (Auto) 6.5 (3-14) % Eos % (Auto) 1.7 L (2-4) % Baso % (Auto) 0.9 (0-2) % Neut # (Auto) 4200 (0287-0231) /uL Lymph # (Auto) 1500 (4906-8334) /uL [place] # (Auto) 400 (0-900) /uL Eos # (Auto) 100 (0-450) /uL Baso # (Auto) 100 (0-100) /uL PT 11.0 (9.4-12.5) SECONDS INR 1.0 (0.9-1.3) APTT 29 (25.1-36.5) SECONDS Sodium 133 L (137-145) mmol/L Potassium 4.3 (3.4-5.1) mmol/L Chloride 101 (98-107) mmol/L Carbon Dioxide 24 (22-32) mmol/L BUN 12 (9-20) mg/dL Creatinine 1.04 (0.66-1.25) mg/dL Estimated GFR > 60 (>60) mL/min BUN/Creatinine Ratio 11.5 (6-22) Glucose 111 H (70-99) mg/dL Calcium 9.0 (8.4-10.2) mg/dL Magnesium 1.9 (1.6-2.3) mg/dL Total Bilirubin 1.0 (0.2-1.3) mg/dL AST 58 (17-59) IU/L ALT 26 (<50) IU/L Alkaline Phosphatase 51 (38-126) U/L Total Creatine Kinase 130 (55-170) U/L Troponin I 0.013 (0.01-0.034) ng/mL NT-Pro-B Natriuret Pep 1010 H (<450) pg/mL Total Protein 6.8 (6.3-8.2) g/dL Albumin 4.0 (3.5-5.0) g/dL Globulin 2.8 (1.7-4.1) g/dL Albumin/Globulin Ratio 1.4 (1.0-2.8) Lipase 104 (23-300) U/L Urine Color Yellow Urine Appearance Clear Urine pH 7.5 (4.5-8.0) Ur Specific [place] 1.010 (1.000-1.035) Urine Protein Negative (Negative) Urine Glucose (UA) Negative (Negative) g/dL Urine Ketones Negative (NEGATIVE) Urine Occult Blood Negative (Negative) Urine Nitrate Negative (Negative) Urine Bilirubin Negative (NEGATIVE) Urine Urobilinogen 0.2 (0.2) E.U./dL Ur Leukocyte Esterase Negative (NEGATIVE) Urine RBC 0-1/hpf (0-5/HPF) Urine WBC 0-1/hpf (0-5/HPF) Ur Squamous Epith Cells 0-1 /hpf (0-5/HPF) Urine Bacteria Occasional (0-1) (None) Ur Culture Indicated? Cult not indicated Vol Urine Centrifuged 10ml (spun) U Opiates 300ng/mL cut Negative (Negative) Ur Oxycodone Screen Negative (Negative) Urine Methadone Screen Negative (Negative) Ur Barbiturates Screen Negative (Negative) U Tricyclic Antidepress Negative (Negative) Ur Phencyclidine Scrn Negative (Negative) Ur Amphetamines Screen Negative (Negative) U Methamphetamines Scrn Negative (Negative) Ur MDMA Scrn (Ecstasy) Negative (Negative) U Benzodiazepines Scrn Negative (Negative) Urine Cocaine Screen Negative (Negative) U Marijuana (THC) Screen Negative (Negative) Urine Specific [place] (Normal) Ethyl Alcohol < 10 (<10) mg/dL Ur Creatinine (Normal) Chlamy pneumoniae PCR Not detected (Not Detect) Adenovirus (PCR) Not detected (Not Detect) B. pertussis DNA (PCR) Not detected (Not Detect) B.parapertussis DNA PCR Not detected (Not Detecte) Coronavirus OC43 (PCR) Not detected (Not Detect) Coronavirus HKU1 (PCR) Not detected (Not Detect) Coronavirus 229E (PCR) Not detected (Not Detect) SARS-CoV-2 (PCR) Not detected (Not Detecte) Coronavirus NL63 (PCR) Not detected (Not Detect) Human Metapneumovir PCR Not detected (Not Detect) Influenza Type A (PCR) Not detected (Not Detect) Influenza Type B (PCR) Not detected (Not Detect) M. pneumoniae (PCR) Not detected (Not Detect) Parainfluenza 1 (PCR) Not detected (Not Detect) Parainfluenza 2 (PCR) Not detected (Not Detect) Parainfluenza 3 (PCR) Not detected (Not Detect) Parainfluenza 4 (PCR) Not detected (Not Detect) RSV (PCR) Not detected (Not Detect) Entero/Rhino (PCR) Not detected (Not Detect) 03/09/25 03/09/25 Range/Units 13:28 17:00 WBC (4.5-11.0) X10^3/uL RBC (4.5-5.9) X10^6/uL Hgb (13.5-17.5) g/dL Hct (41-53) % MCV (80-100) fL MCH (26-34) PG MCHC (30-36) % RDW (11.6-14.8) % Plt Count (150-400) X10^3/uL Neut % (Auto) (50-75) % Lymph % (Auto) (25-40) % [place] % (Auto) (3-14) % Eos % (Auto) (2-4) % Baso % (Auto) (0-2) % Neut # (Auto) (5857-5939) /uL Lymph # (Auto) (0109-1137) /uL [place] # (Auto) (0-900) /uL Eos # (Auto) (0-450) /uL Baso # (Auto) (0-100) /uL PT (9.4-12.5) SECONDS INR (0.9-1.3) APTT (25.1-36.5) SECONDS Sodium (137-145) mmol/L Potassium (3.4-5.1) mmol/L Chloride (98-107) mmol/L Carbon Dioxide (22-32) mmol/L BUN (9-20) mg/dL Creatinine (0.66-1.25) mg/dL Estimated GFR (>60) mL/min BUN/Creatinine Ratio (6-22) Glucose (70-99) mg/dL Calcium (8.4-10.2) mg/dL Magnesium (1.6-2.3) mg/dL Total Bilirubin (0.2-1.3) mg/dL AST (17-59) IU/L ALT (<50) IU/L Alkaline Phosphatase (38-126) U/L Total Creatine Kinase (55-170) U/L Troponin I 0.016 (0.01-0.034) ng/mL NT-Pro-B Natriuret Pep (<450) pg/mL Total Protein (6.3-8.2) g/dL Albumin (3.5-5.0) g/dL Globulin (1.7-4.1) g/dL Albumin/Globulin Ratio (1.0-2.8) Lipase (23-300) U/L Urine Color Urine Appearance Urine pH Normal (4.5-8.0) Ur Specific [place] (1.000-1.035) Urine Protein (Negative) Urine Glucose (UA) (Negative) g/dL Urine Ketones (NEGATIVE) Urine Occult Blood (Negative) Urine Nitrate (Negative) Urine Bilirubin (NEGATIVE) Urine Urobilinogen (0.2) E.U./dL Ur Leukocyte Esterase (NEGATIVE) Urine RBC (0-5/HPF) Urine WBC (0-5/HPF) Ur Squamous Epith Cells (0-5/HPF) Urine Bacteria (None) Ur Culture Indicated? Vol Urine Centrifuged U Opiates 300ng/mL cut (Negative) Ur Oxycodone Screen (Negative) Urine Methadone Screen (Negative) Ur Barbiturates Screen (Negative) U Tricyclic Antidepress (Negative) Ur Phencyclidine Scrn (Negative) Ur Amphetamines Screen (Negative) U Methamphetamines Scrn (Negative) Ur MDMA Scrn (Ecstasy) (Negative) U Benzodiazepines Scrn (Negative) Urine Cocaine Screen (Negative) U Marijuana (THC) Screen (Negative) Urine Specific [place] Normal (Normal) Ethyl Alcohol (<10) mg/dL Ur Creatinine Normal (Normal) Chlamy pneumoniae PCR (Not Detect) Adenovirus (PCR) (Not Detect) B. pertussis DNA (PCR) (Not Detect) B.parapertussis DNA PCR (Not Detecte) Coronavirus OC43 (PCR) (Not Detect) Coronavirus HKU1 (PCR) (Not Detect) Coronavirus 229E (PCR) (Not Detect) SARS-CoV-2 (PCR) (Not Detecte) Coronavirus NL63 (PCR) (Not Detect) Human Metapneumovir PCR (Not Detect) Influenza Type A (PCR) (Not Detect) Influenza Type B (PCR) (Not Detect) M. pneumoniae (PCR) (Not Detect) Parainfluenza 1 (PCR) (Not Detect) Parainfluenza 2 (PCR) (Not Detect) Parainfluenza 3 (PCR) (Not Detect) Parainfluenza 4 (PCR) (Not Detect) RSV (PCR) (Not Detect) Entero/Rhino (PCR) (Not Detect) MDM Narrative Medical decision making narrative: HPI, PMHx, PSHx, Medication list, Allergies, ROS and Focused exam were reviewed above. ?Differential diagnosis as noted below. ?Social determinants affecting care considered. ?All of these were taken into consideration warranting above listed work up. ?Consultations as deemed necessary were documented below (if listed). Labs (if ordered and noted) were independently reviewed by me. Imaging studies (if ordered and noted) were independently reviewed by me EKG (if noted) was independently reviewed by me External documents (if reviewed) are documented above Initial VS noted above. ? Differential diagnosis considered include (but not limited to) the following: CVA/TIA, intracranial hemorrhage, brain neoplasm, BPPV, Meniere's disease, labyrinthitis, ACS, cardiac dysrhythmia, dehydration, liver or kidney failure, electrolyte imbalance, symptomatic anemia, adverse effect of illicit drug/ETOH, CHF, UTI Pt interviewed and examined. Nonfocal exam with no nystagmus noted. NIHSS zero. Last well known time was 2 days ago. Not a TNKase candidate but stroke work up initiated. Bedside EKG showed no ST elevation or ectopy. CT head, CTA head and neck negative. MRI brain ordered - no occipital infarct. Labs overall reassuring other than elevated BNP but CXR showed no acute pulmonary edema. BP still high. Hydralazine IV ordered for HTN and BP briefly improved then went back up. Discussed plan of care and discussed case with Dr. Khan regarding admission for BP med adjustment and observation considering his risk of fall and home status (lives alone). Doesn't feel admission is warranted at this time. Case signed out to Dr. Mark @ 1829 with reassessment after PO Amlodipine and safe disposition home. Aubrey Burgos MD 03/09/25,1829 1829, Jas. Sign-out from Dr. Burgos. 84-year-old male with dizziness and elevated blood pressures. Today had evaluation including CT head noncontrast, CTA head and neck vessels, MRI brain studies, last known well 2 days ago, no evidence for stroke identified thus far. Elevated blood pressures, given IV hydralazine. Lives alone. PCP Ar[facility] was contacted, advised further attempts at treatment blood pressure for now, patient seemed willing. Oral amlodipine dose given. Oral meclizine dose given. Further observe for now. Assumed care. 1929, BP improved 148/70, meclizine given just 30 minutes ago. We will further observe for the next 1-2 hours, to see if meclizine helps steadiness of his gait. 2029, further improved, successful ambulation. He would like to be discharged home. Follow up with PCP Dr. Gonzalez early next week. Case discussed again with Dr. Paniagua cross augie, agrees with this plan, and stated he would communicate ED visit in need for close follow up with Dr. Gonzalez. Discharge Plan Departure Patient Disposition: Home Clinical Impression: Dizziness, Accelerated essential hypertension Activity Restrictions/Additional Instructions: Dizziness with workup including CT head, CT angiogram studies, MRI brain today showing no acute changes. Elevated blood pressures noted. IV hydralazine with oral amlodipine given for blood pressure control. Consideration was made for admission, previous physician DR Burgos ED physician had communicated with Dr. Paniagua who was covering for your PCP Dr. Gonzalez who believes you can have further workup as an outpatient if your dizziness symptoms were controlled on meclizine, and if your blood pressure was controlled on amlodipine. Your blood pressure did seemed improved on amlodipine. You seemed to have improvement of your dizziness symptoms on meclizine. Further workup as an outpatient for now with your regular doctor. Amlodipine and meclizine prescription sent to your pharmacy. Recheck Wednesday with your regular provider. Return to this/nearest emergency department for any change worsening symptoms or any concerns prior. Case discussed again with Dr. Paniagua who was cross covering from your regular physician Dr. Gonzalez. He agrees with the above plan, and stated that he would relay messaging to Dr. power regarding your visit today and need for close follow up early this next week. Prescriptions: New meclizine 25 mg tablet 25 mg PO TID 7 Days Qty: 21 0RF amlodipine 5 mg tablet 5 mg PO DAILY Qty: 30 0RF No Action aspirin 81 MG tablet,chewable 81 mg PO QDAY Qty: 0 Fish Oil (#SUPER EPA 2000) 2,000 mg PO QDAY Qty: 0 levothyroxine 150 MCG tablet 150 mcg PO QDAY Qty: 0 CHOLECALCIFEROL (VITAMIN D3) (#VITAMIN D 90 MG-2000 IU) 1 tab PO Qty: 0 red yeast rice 600 mg tablet 1,200 mg PO DAILY Rx Instructions: give with meal/snack alfuzosin 10 mg tablet extended release 24 hr 10 mg PO DAILY Qty: 90 3RF Rx Instructions: administer after the same meal each day Referrals: Chandra Paniagua MD [Physician, Internal Medicine] Young Gonzalez MD [Primary Care Provider, Family Practice] Stand Alone Forms: Patient Portal/API
[2025-03-09 12:18] LABS: Add Manual Diff / Slide Review NO; Hematocrit 41.9 % (41-53); Hemoglobin 14.4 g/dL (13.5-17.5); Lymphocytes Absolute Auto 1500 /uL (1100-4500); Mean Corpuscular HGB Conc 34.3 % (30-36); Mean Corpuscular Hemoglobin 34.0 PG (26-34); Mean Corpuscular Volume 99.2 fL (80-100); Platelet Count 225 X10^3/uL (150-400)
--- NOTE | 2025-03-09 12:21 | DI.CT.S_ITS ---
PROCEDURE: CT HEAD/BRAIN WO CON INDICATIONS: dizziness TECHNIQUE: Noncontrast 4.5 mm thick angled axial sections acquired from the foramen magnum to the vertex, with coronal and sagittal reformats. For radiation dose reduction, the following was used: automated exposure control, adjustment of mA and/or kV according to patient size. COMPARISON: [facility], CT, CT ANGIO HEAD AND NECK, 03/09/2025, 13:08. [facility], CT, CT HEAD/BRAIN WO CON, 12/20/2020, 17:37. (Additional prior imaging is not available for review from the archive at the time of this dictation.) FINDINGS: Image quality: Diagnostic. CSF spaces: Basal cisterns are patent. No extra-axial fluid collections. The ventricles are symmetric in size and shape. Brain: No intracranial bleeds or mass effect. There is cerebral volume loss, with resultant ventricular and sulcal prominence. There are periventricular and deep white matter chronic small vessel ischemic changes. There is intracranial internal carotid artery atherosclerosis. Skull and face: Calvarium and visualized facial bones appear intact, without suspicious lesions. Sinuses: Visualized sinuses and mastoids are clear. IMPRESSION: Unremarkable noncontrast head CT, similar to the prior. Dictated by: Anand Haji M.D. on 03/09/2025 at 12:41 Approved by: Anand Haji M.D. on 03/09/2025 at 12:41
--- NOTE | 2025-03-09 12:21 | DI.CT.S_ITS ---
PROCEDURE: CT ANGIO HEAD AND NECK INDICATIONS: dizziness TECHNIQUE: After the administration of intravenous contrast, 1 mm thick sections acquired from the aortic arch through the [facility] [place]. 3-dimensional wogzhwx-vzxiifhhx-hhuygtsutf (MIP) and/or volume rendering reformats were acquired of the central intracranial vasculature and neck separately. For radiation dose reduction, the following was used: automated exposure control, adjustment of mA and/or kV according to patient size. COMPARISON: [facility], CT, CT HEAD/BRAIN WO CON, 03/09/2025, 13:08. [facility], CT, CT HEAD/BRAIN WO CON, 12/20/2020, 17:37. (Additional prior imaging is not available for review from the archive at the time of this dictation.) FINDINGS: Image quality: There is artifact associated with the metallic hardware. Artifact from the metallic hardware is reduced by metal reconstruction algorithm. Cerebral CT Angiogram: Internal carotid arteries: No acute findings. Intracranial ICA are patent with no significant stenosis. No occlusion. No aneurysm. Dense calcification can be seen, with approximately 50% narrowing on each side. Anterior cerebral arteries: Unremarkable. No significant stenosis. No occlusion. No aneurysm. Middle cerebral arteries: Unremarkable. No significant stenosis. No occlusion. No aneurysm. Posterior cerebral arteries: Unremarkable. No significant stenosis. No occlusion. No aneurysm. Basilar artery: Unremarkable. No significant stenosis. No occlusion. No aneurysm. Vertebral arteries: Unremarkable as visualized. Dural venous sinuses: Unremarkable given phase of enhancement. Other: Arterial phase appearance of the brain parenchyma is unremarkable. Neck CT Angiogram: Internal carotid arteries: Unremarkable. No significant stenosis. No dissection or occlusion. Common carotid arteries: Unremarkable. No significant stenosis. No dissection or occlusion. External carotid arteries: Unremarkable. No occlusion. Vertebral arteries: Unremarkable. No significant stenosis. No dissection or occlusion. Aortic Arch and Mediastinum: Partially visualized aortic arch unremarkable without evidence of aneurysm. Origins of the great vessels unremarkable. Other: Arterial phase soft tissues of the neck and chest are unremarkable. At least moderate cervical spine degenerative change is seen. IMPRESSION: No imaging explanation is found for this patient's presenting symptoms. No significant intracranial arterial abnormality is seen. No significant abnormality is seen within the arteries of the neck. No findings of dissection are seen. Additional findings: At least moderate cervical spine degenerative change Any quantitative measurements of stenosis were performed using NASCET criteria. Dictated by: Anand Haji M.D. on 03/09/2025 at 12:42 Approved by: Anand Haji M.D. on 03/09/2025 at 12:44
[2025-03-09 12:26] LABS: INR 1.0 (0.9-1.3); Prothrombin Time 11.0 SECONDS (9.4-12.5)
[2025-03-09] MEDS: ASPIRIN 81 MG CHEW TAB 324 MG PO (12:29)
--- NOTE | 2025-03-09 12:29 | PC.NURSE ---
pt took 1 baby asa (81mg) guard captain
[2025-03-09 12:30] LABS: PTT Partial Thromboplastin Tim 29 SECONDS (25.1-36.5)
[2025-03-09 12:31] LABS: Alanine Aminotransferase 26 IU/L (<50); Albumin 4.0 g/dL (3.5-5.0); Albumin Globulin Ratio 1.4 (1.0-2.8); Alkaline Phosphatase 51 U/L (38-126); Blood Urea Nitrogen 12 mg/dL (9-20); Calcium 9.0 mg/dL (8.4-10.2); Carbon Dioxide 24 mmol/L (22-32); Chloride 101 mmol/L (98-107); Creatine Kinase 130 U/L (55-170); Estimated Glomerular Filt Rate > 60 mL/min (>60); Globulin 2.8 g/dL (1.7-4.1); Glucose 111 mg/dL (70-99); HEMOLYSIS 18 (0-50); Lipase 104 U/L (23-300); Magnesium 1.9 mg/dL (1.6-2.3); Potassium 4.3 mmol/L (3.4-5.1); Sodium 133 mmol/L (137-145); Total Protein 6.8 g/dL (6.3-8.2)
[2025-03-09 12:42] LABS: Ethanol (ETOH) < 10 mg/dL (<10); NT-proBNP (BNP-Adult 18+) 1010 pg/mL (<450); Troponin I 0.013 ng/mL (0.01-0.034)
[2025-03-09 13:38] LABS: Appearance Urine UA CLEAR; Bilirubin Urine UA NEGATIVE (NEGATIVE); Color Urine UA YELLOW; Glucose Urine UA NEGATIVE (Negative); Ketones Urine UA NEGATIVE (NEGATIVE); Leukocyte Esterase Urine UA NEGATIVE (NEGATIVE); Nitrite Urine UA NEGATIVE (Negative); Occult Blood Urine UA NEGATIVE (Negative); Protein Urine UA NEGATIVE (Negative); Specific Gravity Urine UA 1.010 (1.000-1.035); Urobilinogen Urine UA 0.2 E.U./dL (0.2); pH Urine UA 7.5 (4.5-8.0)
[2025-03-09 13:39] LABS: Ur Creatinine Normal (Normal); Ur Specific Gravity Normal (Normal); Urine MDMA Negative (Negative); Urine Methamphetamines Negative (Negative); Urine THC Negative (Negative); Urine Tricyclic Antidepressant Negative (Negative); Urine pH Normal (Normal)
[2025-03-09 13:43] LABS: Culture Indicated Urine Cult Not Indicated
--- NOTE | 2025-03-09 14:04 | DI.MRI.S_ITS ---
PROCEDURE: MR HEAD/BRAIN WO CON INDICATIONS: dizziness TECHNIQUE: Non-contrast axial T1 spin echo, axial T2 fast spin echo, sagittal and axial FLAIR, coronal T2 fast spin echo, axial gradient echo, axial diffusion and ADC through the brain. COMPARISON: [facility], MR, STROKE PROTOCOL, 12/10/2015, 7:17. [facility], CT, CT ANGIO HEAD AND NECK, 03/09/2025, 13:08. [facility], CT, CT HEAD/BRAIN WO CON, 03/09/2025, 13:08. FINDINGS: Image quality: Excellent. CSF spaces: Ventricles appear symmetric in size and shape. Basal cisterns are patent. No extra-axial fluid collections. Brain: No intracranial bleeds or mass effects. There is cerebral volume loss for age. There are periventricular and deep white matter chronic small vessel ischemic changes. Brainstem appears normal. Diffusion-weighted images show no acute infarct. No chronic ischemic insults. Normal intravascular flow voids are present. Relatively prominent perivascular spaces are noted. Skull and face: Calvarial bone marrow is normal in signal. Orbits are normal. Note is made of bilateral lens replacements. Sinuses: Sinuses and mastoids are clear. IMPRESSION: No imaging explanation is found for this patient's presenting symptoms. No findings of acute or subacute infarction can be seen. To the limits of this noncontrast study, no findings of intracranial masses or mass effect can be seen. Note is made of age-appropriate brain parenchymal volume loss and chronic small vessel ischemic changes. Dictated by: Anand Haji M.D. on 03/09/2025 at 14:04 Approved by: Anand Haji M.D. on 03/09/2025 at 14:05
[2025-03-09 14:36] LABS: Coronavirus NL 63 Not Detected (Not Detect); SARS- CoV-2 Not Detected (Not Detecte)
[2025-03-09] MEDS: hydrALAZINE 20 MG/ML VIAL 10 MG IV (16:29)
[2025-03-09 17:31] LABS: Troponin I 0.016 ng/mL (0.01-0.034)
[2025-03-09] MEDS: AMLODIPINE 5 MG TABLET PO (18:24)
[2025-03-09] MEDS: MECLIZINE HCL 12.5 MG TABLET 25 MG PO (18:35)
--- NOTE | 2025-03-09 18:53 | CM.SWNOTE ---
ED DYE RANGE OPERATOR Note Patient is 84 y/o male who presents to the ED due to concern for weakness and dizziness. Patient has hx of TIAs. Patient's PCP is Dr. Paniagua, patient has [facility] Advantage insurance. DYE RANGE OPERATOR receives consult due to RN's request for Community Ground Intelligence Officer referral, as patient resides alone and is starting a new blood pressure medication. DYE RANGE OPERATOR enters room to meet with patient, patient presents as A/Ox4, family present. DYE RANGE OPERATOR discusses community space and missile defense operations program, patient and family indicate interest and agreement to program. DYE RANGE OPERATOR provides patient with Prosper Smith's contact information and senior resource guide. It is reported that family will stay with patient over the weekend. Patient resides alone in [place]. Patient denies any other needs or concerns at this time. DYE RANGE OPERATOR calls Prosper Smith and leaves regarding referral. DYE RANGE OPERATOR submits referral online as well. Plan: patient to d/c to home upon medical clearance. patient to start new rx, Community Ground Intelligence Officer Prosper Smith to f/u with patient. JASPER Soliman
--- NOTE | 2025-03-09 20:15 | PC.NURSE ---
Pt assisted ambulated to restroom with 1 person standby. Pt states he is feeling better but still unsteady on my feet. wo
--- NOTE | 2025-03-09 20:17 | PC.NURSE ---
(Continued from previous note) Pt states unsteadiness worse when standing, better when sitting/lying. Pt states comfortable being discharged at this time. States son will be staying with him.
== END 2025-03-09 20:57 | disposition home or self-care (01) ==
PROVIDERS: Emergency Medicine; Emergency Provider Emergency Medicine; Family Provider Family Medicine; PCP Family Medicine
DX: R42 Dizziness and giddiness (principal); I10 Essential (primary) hypertension; Z86.73 Personal history of transient ischemic attack (TIA), and cerebral infarction without residual deficits
CPT/HCPCS: 36415; 70450; 70496; 70498; 70551; 71045; 80053; 80305; 80320; 81001; 82550; 83690; 83735; 83880; 84484; 85025; 85610; 85730; 87633; 93005; 96374; 99284; J0360; Q9967

== ENCOUNTER 2025-04-17 08:15 | Outpatient (RCR) | payer OTHER, SELFPAY ==
--- NOTE | 2025-04-10 12:16 | PT.OPPOC ---
Physical, Occupational & Speech Therapy At Current Diagnoses Unsteadiness on feet (04/10/25) Visit Care Team Role Provider Type Dayanna Bernabe MD Family Provider Non-Staff Specialty: Family Practice Address: [address], [place], [address] Email: Young Gonzalez MD Attending Provider Physician Primary Care Provider Referring Provider Specialty: [facility] Address: [facility] [place], [address] Email: [email or web address] Plan Of Care PT OP: Lower Back/Lower Extremity Start: 04/10/25 10:45 Freq: Status: Active Protocol: Document 04/10/25 10:46 BL (Rec: 04/10/25 12:15 BL Laptop) Out-Patient Physical Therapy Visit Information Visit Information Visit Type Initial Evaluation Visit Start Time 10:45 Visit Stop Time 11:25 Visit Number 1 (08/25) Number of SHEET METAL DUCT INSTALLER Visits 0 Progress Note Due 05/10/25 OP-PT Subjective Patient Comments Patient Comments Pt presents to the clinic this date with concerns for bryce LE weakness and decreased steadiness on feet. Pt reports a history or TIAs. States he was in the hospital several weeks ago with an episode of unsteadiness. Pt reports he BP and MRI results were normal. Pt reports two falls in the past year when he was on uneven surfaces. Pt states a history of bryce numbness in his fingers and toes. Pt also reports increased swelling in Bryce LE. Pts goals are to improve steadiness on feet. Patient Questionnaires ABC- Activity Specific Balance Confidence Scale ABC Score 32 % confidence Balance Tests Other Other Balance Tests DGI 03/08 (high fall risk) Performed Posture Evaluation Comments Posture Comments Pt stands with slight lean to L side. Increased swelling noted to mid calf bryce with 3+ Hip Goniometric Range of Motion Hip Measured in Degrees right Hip ROM WFL Yes left Hip ROM WFL Yes Knee Goniometric Range of Motion Knee Measured in Degrees Right Knee ROM WFL Yes Left Knee ROM WFL Yes Hip Strength Hip Manual Muscle Testing Right Flexion (L2) 4+ Good+ Extension (S1) 4 Good Abduction 4+ Good+ Adduction 4+ Good+ External Rotation 4+ Good+ Internal Rotation 4+ Good+ Left Flexion (L2) 4+ Good+ Extension (S1) 4 Good Abduction 4+ Good+ Adduction 4+ Good+ External Rotation 4+ Good+ Internal Rotation 4+ Good+ Knee Strength Knee Manual Muscle Testing Right Flexion (S2) 4+ Good+ Extension (L3) 4+ Good+ Left Flexion (S2) 4+ Good+ Extension (L3) 4+ Good+ Physical Therapy Assessment Rehab Potential Rehabilitation Good Potential Evaluation Complexity Number of Personal 1-2 Factors/ Comorbidities Number of Body 3 Systems Impaired Clinical Evolving Presentation at Evaluation Impairments Impairments Activity Tolerance,Balance,Coordination,Functional Activities,Functional Mobility,Gait,Strength,Transfers Goals Three Air Pumper Goal (LTG) Pt will demo improved ABS score to 50% confidence or better by DC for improved quality of life. Two Usp Goal (LTG) Pt will demo improved hip abduction strength to 5/5 by DC for improved stability with gait. One Short Term Goal (STG pt will be ind with HEP within 2 visits in order to ) progress toward press tender long goods therapy goals outside of therapy visits. Usp Goal (LTG) Pt will demo improved DGI score to 15/24 by DC for improved safety with ADLS. Assessment Summary Assessment Pt presents with concerns for balance and demos decreased LE strength and stability as well as balance testing reveals pt is at a higher risk for falls. Pt will benefit from strength and balance training to improve functional mobility and safety and improved confidence with ADLs. Pt may be limited in progress due to financial burden but will work within the constraints of pts budget. Physical Therapy Plan Frequency and Duration Frequency of 1x/Week Treatment Duration of 12 treatment (weeks) Plan of Care Start 04/10/25 Date Plan of Care End 07/03/25 Date Therapeutic Interventions Therapeutic Balance Training,Canalithic Repositioning,Coordination Interventions Training,Gait Training,Home Exercise Program,Joint Mobilizations,Manual Therapy,Neuromuscular Re-education ,Patient/Caregiver Education,Self-Care/Home Management, Sensory Integration,Soft Tissue Mobilization,Taping, Therapeutic Activities,Therapeutic Exercises Modalities Infrared Therapy Next Visit Focus/Plan Next Note Type Treatment Note Next Visit Plan Advance HEP for dynamic balance with gait and functional activities. Hip abduction strengthening. Plan of Care Dates Plan of Care Start Date 04/10/25 Plan of Care End Date 07/03/25 Electronically Signed by: Nnamdi Jacques, PT 04/10/25 1216 If you are in agreement with this Plan of Care, please return a signed and dated copy. I have reviewed this Plan of Care and certify that the skilled therapy services above are required to meet the patient?s needs. Physician Signature Date Printed Name and Credentials Clinical Instructor Signature Printed Name and Credentials
--- NOTE | 2025-04-17 16:25 | PT.OPDS ---
Current Diagnoses Unsteadiness on feet (04/17/25) Visit Care Team Role Provider Type Dayanna Bernabe MD Family Provider Non-Staff Specialty: [facility] Practice Address: [address], [place], [address] Email: Young Gonzalez MD Attending Provider Physician Primary Care Provider Referring Provider Specialty: [facility] Address: [address] [place], [address] Email: Visit Number Visit Number 1 (08/25) Discharge Summary Pt calls to cancel future appointments, pt states the financial burden of the copay is to great and while he wishes to continue, feels his HEP is sufficient to meet his needs at this time. Pt will plan to contact us in the future if he doesn't continue to notice improvements. PT OP: Lower Back/Lower Extremity Start: 04/10/25 10:45 Freq: Status: Active Protocol: Document 04/17/25 08:13 BL (Rec: 04/17/25 08:58 BL Laptop) Out-Patient Physical Therapy Visit Information Visit Information Visit Type Treatment Note Visit Start Time 10:45 Visit Stop Time 11:25 Visit Number 1 (08/25) Number of RESEARCH BIOLOGIST Visits 0 Progress Note Due 05/10/25 OP-PT Subjective Patient Comments Patient Comments Pt presents to the clinic this date and reports he is doing well, states he is a little concerned about his copay and not sure how long he will be able to afford to come to therapy. Therapeutic Exercises Standing Exercises strength Standing Exercise lateral step ups, Dynamic Heel raise, hip abduction, Name lateral walking Resistance lvl 3 band at knees Comments 2x10 ea Other Exercises Endurance Other Exercise Name CR800 Neuro Re-Education Treatment Balance Activities Static stance Details SLS Comments 3x 30 sec Dynamci Gait Details fwd walk with lat and nod turns, semi tandem gait, Comments 3x 30' Physical Therapy Assessment Goals Three Pellet Press Operator Goal (LTG) Pt will demo improved ABS score to 50% confidence or better by DC for improved quality of life. Two Nursing Home Goal (LTG) Pt will demo improved hip abduction strength to 5/5 by DC for improved stability with gait. One Short Term Goal (STG pt will be ind with HEP within 2 visits in order to ) progress toward alf therapy goals outside of therapy visits. Nursing Home Goal (LTG) Pt will demo improved DGI score to 15/24 by DC for improved safety with ADLS. Assessment Summary Assessment Pt tolerates session well, able to advance HEP for LE strength and endurance training. Continue to advance HEP per pt tolerance and advance dynamic balance training. Physical Therapy Plan Frequency and Duration Frequency of 1x/Week Treatment Duration of 12 treatment (weeks) Plan of Care Start 04/10/25 Date Plan of Care End 07/03/25 Date Next Visit Focus/Plan Next Note Type Treatment Note Next Visit Plan Advance HEP for dynamic balance with gait and functional activities. Hip abduction strengthening.
== END 2025-04-19 08:12 | disposition home or self-care (01) ==
LOC: PHYS 08:15
PROVIDERS: Family Provider Family Medicine; PCP Family Medicine; Referring Provider Family Medicine; Visit Provider Family Medicine
DX: R26.81 Unsteadiness on feet (principal)
CPT/HCPCS: 97110; 97112; 97162